=== PATIENT | male | born 1925 | race Caucasian/White ===

== ENCOUNTER 2017-01-12 13:06 | Emergency (ER) | payer OTHER ==
[~2017-01-12] VITALS: Ht 147.3 cm; Wt 43.1 kg
[2017-01-12] MEDS ORDERED: GABA-532 PO (13:45)
[2017-01-12] MEDS ORDERED: BISA10SU8 RC (13:45)
[2017-01-12] MEDS ORDERED: IV NORMAL SALINE 1000 ML BAG IV ONE (13:45)
[2017-01-12] MEDS ORDERED: HYDROCODONE PO (13:45)
[2017-01-12] MEDS ORDERED: DOCU100T9 PO (13:45)
[2017-01-12] MEDS ORDERED: OMEP20TA5 PO (13:45)
[2017-01-12] MEDS ORDERED: MIRT15TA7 PO (13:45)
[2017-01-12] MEDS ORDERED: POLY17PO4 PO (13:45)
[2017-01-12 14:05] LABS: BASOPHILS # (AUTO) 0.1 K/uL (0.0-8.0); BASOPHILS % (AUTO) 1.7 % (0.0-2.0); EOSINOPHILS # (AUTO) 0.2 K/uL (0.0-0.7); EOSINOPHILS % (AUTO) 3.5 % (0.0-7.0); HEMATOCRIT 35.1 % (40-50); HEMOGLOBIN 11.8 G/DL (14.0-18.0); LYMPHOCYTES # (AUTO) 1.8 K/UL (0.8-4.8); LYMPHOCYTES % (AUTO) 29.4 % (20.5-51.5); MEAN CORPUSCULAR HEMOGLOBIN 32.7 UUG (27.0-31.0); MEAN CORPUSCULAR HGB CONC 34 g/dL (32.0-37.0); MEAN CORPUSCULAR VOLUME 97.6 FL (82.0-92.0); MONOCYTES # (AUTO) 0.5 K/UL (0.1-1.30); MONOCYTES % (AUTO) 7.5 % (0.0-11.0); NEUTROPHILS # (AUTO) 3.6 K/UL (1.8-8.9); NEUTROPHILS % (AUTO) 57.9 % (38.5-71.5); PLATELET COUNT (AUTO) 421 K/UL (150-450); RED BLOOD CELL COUNT(AUTO) 3.59 MIL/UL (4.7-6.1); WHITE BLOOD COUNT (AUTO) 6.2 K/UL (4.0-11.2)
--- NOTE | 2017-01-12 14:05 | NUR ---
labs drawn, saline lock placed, cxr/ekg done, 1l 0.9ns in fusing pt in route to ct scan. monitor shows nsr, po2=96% on room air.
[2017-01-12 14:15] LABS: CARBON DIOXIDE 32 mmol/L (21-32); CHLORIDE 102 mmol/L (98-107); CREATININE 0.9 mg/dL (0.6-1.3); GLUCOSE 99 mg/dL (74-106); POTASSIUM 4.2 mmol/L (3.5-5.1); UREA NITROGEN, BLOOD 27 mg/dL (7-18)
[2017-01-12 14:21] LABS: ALANINE AMINOTRANSFERASE 21 U/L (16-63); ALKALINE PHOSPHATASE 114 U/L (50-136); ASPARTATE AMINOTRANSFERASE 25 U/L (15-37); BILIRUBIN,DIRECT 0.1 mg/dL (0.0-0.2); BILIRUBIN,TOTAL 0.4 mg/dL (0.2-1.0); LIPASE 123 U/L (73-393); TOTAL PROTEIN, SERUM 7.6 g/dL (6.4-8.2)
--- NOTE | 2017-01-12 14:50 | NUR ---
dr patel called [facility] regarding pt.
--- NOTE | 2017-01-12 16:12 | NUR ---
at 1600 spoke with joslyn colvin at [facility], at 1612 julissa from [facility] was given report,copy of charrt, cd copy of ct and xrays. pt took all belongings, belongings list done.
== END 2017-01-12 16:17 | disposition short-term general hospital (02) ==
LOC: EDBD 13:21 → ER 13:21
DX: K56.41 Fecal impaction (principal); E86.0 Dehydration; E46 Unspecified protein-calorie malnutrition
CPT/HCPCS: 36415; 70030-TC; 71010; 83605; 83690; 85025; 85730; 87040; A4663; J7030